=== PATIENT | male | born 1960 | race African-American/Black ===

== ENCOUNTER 2017-08-05 09:55 | Inpatient (IN) | payer MEDICAID ==
[~2017-08-05] VITALS: Ht 175.3 cm; Wt 93.2 kg
[2017-08-05] MEDS ORDERED: ASPIRIN 81MG TABLET PO STA (10:29)
[2017-08-05] MEDS ORDERED: CLONIDINE 0.2MG TABLET PO ONE (10:30)
[2017-08-05 10:59] LABS: HEMATOCRIT. 28.2 % (42.0-52.0); HEMOGLOBIN. 9.3 g/dL (14.0-18.0); MEAN CORPUSCULAR HEMOGLOBIN 28.6 pg (28.0-32.0); MEAN CORPUSCULAR VOLUME 86.2 fL (80.0-94.0); MEAN PLATELET VOLUME 8.5 fl (7.4-10.4); PLATELET 197 x1000/uL (130-400); RED BLOOD CELL COUNT 3.27 mill/uL (4.7-6.1); RED CELL DISTRIBUTION WIDTH 20.9 % (11.6-14.6)
[2017-08-05 11:06] LABS: CHLORIDE 102 mEq/L (98-107)
[2017-08-05 11:09] LABS: INR 1.1; PARTIAL THROMBOPLASTIN TIME 28.2 sec (23.4-31.0); PROTHROMBIN TIME 11.9 sec (9.4-11.6)
[2017-08-05] MEDS ORDERED: SODIUM BICARBONATE 8.4% 1 MEQ/ML 50ML SYR IV ONE (11:45)
[2017-08-05] MEDS ORDERED: DEXTROSE 50% WATER 50ML SYRINGE IV ONE (11:45)
[2017-08-05] MEDS ORDERED: INSULIN REGULAR (HUMULIN R) 300UNITS/3ML IV ONE (11:45)
[2017-08-05] MEDS ORDERED: ALBUTEROL (0.083%) 2.5MG/3ML NEB HHN ONE (11:45)
[2017-08-05] MEDS ORDERED: SODIUM POLYSTYRENE SULFONATE 15 G/60 ML BOT PO ONE (11:45)
[2017-08-05] MEDS ORDERED: DEXTROSE 50% WATER 50ML SYRINGE IV PRN (12:15)
[2017-08-05] MEDS ORDERED: IPRATROPIUM/ALBUTEROL 0.5-3(2.5)MG/3ML NEB HHN PRN (12:15)
[2017-08-05] MEDS ORDERED: HYDRALAZINE 20MG/ML VIAL IV ONE (12:15)
[2017-08-05 12:18] LABS: PLATELET ESTIMATE NORMAL
[2017-08-05] MEDS ORDERED: LABETALOL 5MG/ML SYR 20 MG/4 ML SYRINGE IV ONE (12:45)
[2017-08-05] MEDS: BLOOD SUGAR DIAGNOSTIC STRIP TEST SCH ×2 (13:00→21:00)
[2017-08-05] MEDS: INSULIN LISPRO 100 UNITS/ML SUBCUT SCH ×3 (13:20→21:00)
[2017-08-05] MEDS ORDERED: SODIUM BICARBONATE 8.4% 1 MEQ/ML 50ML SYR IV SCH (16:15)
[2017-08-05] MEDS ORDERED: INSULIN REGULAR (HUMULIN R) 300UNITS/3ML IV SCH (16:15)
[2017-08-05] MEDS ORDERED: DEXTROSE 50% WATER 50ML SYRINGE IV SCH (16:15)
[2017-08-05] MEDS ORDERED: LABETALOL 5MG/ML SYR 20 MG/4 ML SYRINGE IV SCH (16:15)
[2017-08-05] MEDS ORDERED: HYDRALAZINE 20MG/ML VIAL IV SCH (16:15)
[2017-08-05] MEDS ORDERED: CLONIDINE 0.1MG TABLET PO PRN (17:30)
[2017-08-05] MEDS ORDERED: SODIUM POLYSTYRENE SULFONATE 15 G/60 ML BOT ONE (18:22)
[2017-08-05 19:04] LABS: HEPATITIS B SURFACE ANTIGEN NEGATIVE
[2017-08-05] MEDS ORDERED: ATORVASTATIN CALCIUM 40MG TABLET PO SCH (21:00)
[2017-08-05 21:30] VITALS: BP 190/97
[2017-08-05] MEDS: NIFEDIPINE XL 60MG TAB PO SCH (22:14)
[2017-08-06] VITALS: BP 196/85
[2017-08-06] MEDS: BLOOD SUGAR DIAGNOSTIC STRIP TEST SCH ×3 (06:00→11:15)
[2017-08-06] MEDS ORDERED: EPOETIN ALFA 4000UNITS/ML VIAL SUBCUT SCH (06:00)
[2017-08-06] MEDS: INSULIN LISPRO 100 UNITS/ML SUBCUT SCH ×2 (06:52→11:16)
[2017-08-06 08:00] VITALS: BP 131/73
[2017-08-06] MEDS: NIFEDIPINE XL 60MG TAB PO SCH (08:13)
[2017-08-06] MEDS ORDERED: CLOPIDOGREL 75MG TABLET PO SCH (09:00)
[2017-08-06 09:31] LABS: HEMATOCRIT. 29.1 % (42.0-52.0); HEMOGLOBIN. 9.5 g/dL (14.0-18.0); MEAN CORPUSCULAR HEMOGLOBIN 28.1 pg (28.0-32.0); MEAN CORPUSCULAR VOLUME 86.1 fL (80.0-94.0); MEAN PLATELET VOLUME 8.8 fl (7.4-10.4); PLATELET 213 x1000/uL (130-400); RED BLOOD CELL COUNT 3.38 mill/uL (4.7-6.1)
[2017-08-06 09:38] LABS: PHOSPHORUS 4.3 mg/dL (2.5-4.9)
[2017-08-06 12:00] VITALS: BP 128/76
[2017-08-06 13:28] VITALS: BP 128/76
[2017-08-06] MEDS ORDERED: HYDRALAZINE HCL 100MG TABLET PO SCH (14:00)
[2017-08-06 19:13] LABS: PLATELET ESTIMATE NORMAL
== END 2017-08-06 16:15 | disposition home or self-care (01) | DRG 425 ==
LOC: ER 10:30 → 8WST 10:33 → EDBEDREQ 12:15 → ENRESERV 19:27
PROVIDERS: ADMIT Internal Medicine; ATTEND Internal Medicine
PROC: 5A1D70Z Performance of Urinary Filtration, Intermittent, Less than 6 Hours Per Day (ICD-10-PCS; principal; 2017-08-05)
DX: E87.5 Hyperkalemia (principal); I13.2 Hypertensive heart and chronic kidney disease with heart failure and with stage 5 chronic kidney disease, or end stage renal disease; E44.0 Moderate protein-calorie malnutrition; E11.22 Type 2 diabetes mellitus with diabetic chronic kidney disease; N18.6 End stage renal disease; E66.9 Obesity, unspecified; D63.8 Anemia in other chronic diseases classified elsewhere; E87.6 Hypokalemia; D64.9 Anemia, unspecified; E11.51 Type 2 diabetes mellitus with diabetic peripheral angiopathy without gangrene; E78.5 Hyperlipidemia, unspecified; I50.9 Heart failure, unspecified; Z86.73 Personal history of transient ischemic attack (TIA), and cerebral infarction without residual deficits; Z91.15 Patient's noncompliance with renal dialysis; Z88.0 Allergy status to penicillin; Z99.2 Dependence on renal dialysis; Z89.421 Acquired absence of other right toe(s); Z68.30 Body mass index [BMI] 30.0-30.9, adult; E87.70 Fluid overload, unspecified
CPT/HCPCS: 36415; 71045; 80048; 80053; 80061; 82962; 83036; 83735; 83880; 84100; 84484; 85025; 85610; 85730; 86803; 87340; 93005; 94644; J0360; J0885; J1815; J3490; J7030; J7611

== ENCOUNTER 2018-02-19 14:30 | Inpatient (IN) | payer MEDICAID ==
[~2018-02-19] VITALS: Ht 198.1 cm; Wt 79.8 kg
[2018-02-19] MEDS ORDERED: NITROGLYCERIN 0.4MG TABLET SL SL ONE (15:30)
[2018-02-19] MEDS ORDERED: NITROGLYCERIN 50MG PREMIX 250 ML IV ONE (15:30)
[2018-02-19 15:45] LABS: HEMATOCRIT. 26.8 % (42.0-52.0); MEAN CORPUSCULAR HEMOGLOBIN 28.3 pg (28.0-32.0); MEAN CORPUSCULAR VOLUME 84.3 fL (80.0-94.0); MEAN PLATELET VOLUME 8.8 fl (7.4-10.4); PLATELET 239 x1000/uL (130-400); RED BLOOD CELL COUNT 3.17 mill/uL (4.7-6.1)
[2018-02-19 15:51] LABS: INR 1.2; PROTHROMBIN TIME 11.8 sec (9.1-11.1)
[2018-02-19 15:53] LABS: CHLORIDE 98 mEq/L (98-107)
[2018-02-19 16:18] LABS: PLATELET ESTIMATE NORMAL
[2018-02-19] MEDS ORDERED: ASPIRIN 81MG TABLET PO ONE (16:30)
[2018-02-19] MEDS ORDERED: DEXTROSE 50% WATER 50ML SYRINGE IV PRN (16:45)
[2018-02-19] MEDS: MORPHINE SULFATE 4 MG/ML CPJ (NOT FOR IM USE) IV PRN (18:36)
[2018-02-19] MEDS: ONDANSETRON HCL 4MG/2ML INJ IV PRN (18:37)
[2018-02-19] MEDS ORDERED: LABETALOL 5MG/ML SYR 20 MG/4 ML SYRINGE IV ONE (20:00)
[2018-02-20] VITALS (38 sets, daily range): BP systolic 131–195; BP diastolic 42–109
[2018-02-20] MEDS ORDERED: HYDRALAZINE HCL 100MG TABLET PO NR (01:15)
[2018-02-20] MEDS ORDERED: NITROGLYCERIN 50MG PREMIX 250 ML IV ONE ×2 (03:41→09:05)
[2018-02-20] MEDS: MORPHINE SULFATE 4 MG/ML CPJ (NOT FOR IM USE) IV PRN ×2 (04:05→21:44)
[2018-02-20 05:55] LABS: BASOPHILS % 0.6 % (0.0-2.0); EOSINOPHILS % 9.1 % (0.0-5.0); HEMATOCRIT. 28.1 % (42.0-52.0); HEMOGLOBIN. 9.4 g/dL (14.0-18.0); LYMPHOCYTES % 7.8 % (20.0-50.0); MEAN CORPUSCULAR HEMOGLOBIN 28.1 pg (28.0-32.0); MEAN CORPUSCULAR VOLUME 84.2 fL (80.0-94.0); MONOCYTES % 6.9 % (2.0-8.0); NEUTROPHILS % 75.6 % (40.0-76.0); PLATELET 197 x1000/uL (130-400); RED BLOOD CELL COUNT 3.34 mill/uL (4.7-6.1); RED CELL DISTRIBUTION WIDTH 18.8 % (11.6-14.6)
[2018-02-20 06:04] LABS: PHOSPHORUS 5.3 mg/dL (2.5-4.9)
[2018-02-20] MEDS: CLONIDINE 0.2MG TABLET PO PRN (06:15)
[2018-02-20] MEDS: NIFEDIPINE XL 60MG TAB PO SCH ×2 (09:00→17:17)
[2018-02-20] MEDS: BLOOD SUGAR DIAGNOSTIC STRIP TEST SCH ×4 (09:52→21:52)
[2018-02-20] MEDS: INSULIN LISPRO 100 UNITS/ML SUBCUT SCH ×3 (12:00→21:52)
[2018-02-20] MEDS: LOSARTAN POTASSIUM 100 MG TABLET PO SCH (13:57)
[2018-02-20] MEDS: HYDRALAZINE HCL 100MG TABLET PO SCH ×2 (13:58→21:45)
[2018-02-20] MEDS: ONDANSETRON HCL 4MG/2ML INJ IV PRN (21:43)
[2018-02-20] MEDS: CLONIDINE 0.2MG TABLET PO SCH (21:45)
[2018-02-20] MEDS: METOPROLOL TARTRATE 50MG TABLET PO SCH (21:49)
[2018-02-21] VITALS (23 sets, daily range): BP systolic 108–174; BP diastolic 62–100
[2018-02-21] MEDS: CLONIDINE 0.2MG TABLET PO PRN (02:08)
[2018-02-21 06:00] LABS: BASOPHILS % 1.9 % (0.0-2.0); EOSINOPHILS % 13.4 % (0.0-5.0); HEMOGLOBIN. 10.5 g/dL (14.0-18.0); LYMPHOCYTES % 10.4 % (20.0-50.0); MEAN CORPUSCULAR HEMOGLOBIN 27.9 pg (28.0-32.0); MEAN CORPUSCULAR VOLUME 84.9 fL (80.0-94.0); MEAN PLATELET VOLUME 8.6 fl (7.4-10.4); MONOCYTES % 8.5 % (2.0-8.0); NEUTROPHILS % 65.8 % (40.0-76.0); PLATELET 206 x1000/uL (130-400); RED BLOOD CELL COUNT 3.77 mill/uL (4.7-6.1); RED CELL DISTRIBUTION WIDTH 19.1 % (11.6-14.6)
[2018-02-21] MEDS: HYDRALAZINE HCL 100MG TABLET PO SCH ×3 (06:00→21:49)
[2018-02-21] MEDS: CLONIDINE 0.2MG TABLET PO SCH ×3 (06:00→21:49)
[2018-02-21] MEDS: BLOOD SUGAR DIAGNOSTIC STRIP TEST SCH ×4 (06:48→20:36)
[2018-02-21] MEDS: INSULIN LISPRO 100 UNITS/ML SUBCUT SCH ×4 (06:48→20:42)
[2018-02-21] MEDS: NIFEDIPINE XL 60MG TAB PO SCH ×2 (08:19→17:52)
[2018-02-21] MEDS: METOPROLOL TARTRATE 50MG TABLET PO SCH ×2 (08:19→20:26)
[2018-02-21] MEDS: LOSARTAN POTASSIUM 100 MG TABLET PO SCH (08:19)
[2018-02-21] MEDS: CALCIUM ACETATE 667MG CAPSULE PO SCH ×2 (12:43→17:57)
[2018-02-21] MEDS: DIPHENHYDRAMINE 25MG CAPSULE PO PRN (13:29)
[2018-02-21] MEDS ORDERED: DIPHENHYDRAMINE 25MG CAPSULE PO PRN (13:30)
[2018-02-21] MEDS ORDERED: ACETAMINOPHEN 650MG/20.3ML UDC PO PRN (21:30)
[2018-02-21] MEDS: ACETAMINOPHEN 325MG TABLET PO PRN (21:50)
[2018-02-21] MEDS ORDERED: DIPHENHYDRAMINE 25MG CAPSULE PO NR (23:15)
[2018-02-22] VITALS: BP 139/72
[2018-02-22 04:00] VITALS: BP 137/76
[2018-02-22] MEDS: HYDRALAZINE HCL 100MG TABLET PO SCH ×3 (06:04→21:17)
[2018-02-22] MEDS: CLONIDINE 0.2MG TABLET PO SCH ×3 (06:05→21:18)
[2018-02-22] MEDS: BLOOD SUGAR DIAGNOSTIC STRIP TEST SCH ×4 (06:29→20:17)
[2018-02-22] MEDS: INSULIN LISPRO 100 UNITS/ML SUBCUT SCH ×4 (07:50→20:53)
[2018-02-22 09:00] VITALS: BP 125/76
[2018-02-22] MEDS: METOPROLOL TARTRATE 50MG TABLET PO SCH ×2 (09:00→20:09)
[2018-02-22] MEDS: NIFEDIPINE XL 60MG TAB PO SCH ×2 (09:00→18:58)
[2018-02-22] MEDS: LOSARTAN POTASSIUM 100 MG TABLET PO SCH (09:00)
[2018-02-22 10:29] LABS: BASOPHILS % 0.8 % (0.0-2.0); EOSINOPHILS % 14.2 % (0.0-5.0); HEMATOCRIT. 30.1 % (42.0-52.0); HEMOGLOBIN. 10.1 g/dL (14.0-18.0); LYMPHOCYTES % 7.8 % (20.0-50.0); MEAN CORPUSCULAR VOLUME 83.4 fL (80.0-94.0); MEAN PLATELET VOLUME 8.1 fl (7.4-10.4); MONOCYTES % 8.5 % (2.0-8.0); NEUTROPHILS % 68.7 % (40.0-76.0); PLATELET 202 x1000/uL (130-400); RED BLOOD CELL COUNT 3.61 mill/uL (4.7-6.1); RED CELL DISTRIBUTION WIDTH 18.9 % (11.6-14.6)
[2018-02-22 11:57] VITALS: BP 132/70
[2018-02-22 12:11] LABS: PHOSPHORUS 8.2 mg/dL (2.5-4.9)
[2018-02-22] MEDS: CALCIUM ACETATE 667MG CAPSULE PO SCH ×2 (15:04→18:58)
[2018-02-22 20:00] VITALS: BP 136/73
[2018-02-22] MEDS: MORPHINE SULFATE 4 MG/ML CPJ (NOT FOR IM USE) IV PRN (20:10)
[2018-02-23] MEDS: CLONIDINE 0.2MG TABLET PO SCH ×3 (06:14→22:17)
[2018-02-23] MEDS: HYDRALAZINE HCL 100MG TABLET PO SCH ×3 (06:15→22:17)
[2018-02-23] MEDS: BLOOD SUGAR DIAGNOSTIC STRIP TEST SCH ×4 (06:20→21:01)
[2018-02-23] MEDS: CALCIUM ACETATE 667MG CAPSULE PO SCH ×4 (07:50→17:50)
[2018-02-23] MEDS: INSULIN LISPRO 100 UNITS/ML SUBCUT SCH ×4 (07:50→21:01)
[2018-02-23 08:53] VITALS: BP 130/60
[2018-02-23] MEDS: NIFEDIPINE XL 60MG TAB PO SCH ×2 (10:46→17:00)
[2018-02-23] MEDS: METOPROLOL TARTRATE 50MG TABLET PO SCH ×2 (10:47→21:01)
[2018-02-23] MEDS: LOSARTAN POTASSIUM 100 MG TABLET PO SCH (10:47)
[2018-02-23 12:29] VITALS: BP 120/69
[2018-02-23 13:27] LABS: HEMATOCRIT. 32.3 % (42.0-52.0); HEMOGLOBIN. 10.5 g/dL (14.0-18.0); MEAN CORPUSCULAR HEMOGLOBIN 27.3 pg (28.0-32.0); MEAN PLATELET VOLUME 8.1 fl (7.4-10.4); PLATELET 189 x1000/uL (130-400); RED BLOOD CELL COUNT 3.85 mill/uL (4.7-6.1); RED CELL DISTRIBUTION WIDTH 18.7 % (11.6-14.6)
[2018-02-23 13:48] LABS: PLATELET ESTIMATE NORMAL
[2018-02-23 16:20] VITALS: BP 126/69
[2018-02-23] MEDS: ONDANSETRON HCL 4MG/2ML INJ IV PRN (19:40)
[2018-02-23 20:00] VITALS: BP_SYST 129; BP_SYST 136; BP_DIAS 40; BP_DIAS 41
[2018-02-23] MEDS: MORPHINE SULFATE 4 MG/ML CPJ (NOT FOR IM USE) IV PRN (20:03)
[2018-02-24] VITALS: BP 127/62
[2018-02-24] MEDS: DIPHENHYDRAMINE 25MG CAPSULE PO PRN (02:26)
[2018-02-24 04:00] VITALS: BP 128/72
[2018-02-24] MEDS: CLONIDINE 0.2MG TABLET PO SCH ×3 (06:00→22:00)
[2018-02-24] MEDS: HYDRALAZINE HCL 100MG TABLET PO SCH ×3 (06:00→22:00)
[2018-02-24] MEDS: BLOOD SUGAR DIAGNOSTIC STRIP TEST SCH ×4 (06:43→21:00)
[2018-02-24 06:57] LABS: BASOPHILS % 0.9 % (0.0-2.0); EOSINOPHILS % 11.5 % (0.0-5.0); HEMATOCRIT. 33.1 % (42.0-52.0); HEMOGLOBIN. 10.8 g/dL (14.0-18.0); LYMPHOCYTES % 12.6 % (20.0-50.0); MEAN CORPUSCULAR HEMOGLOBIN 27.5 pg (28.0-32.0); MEAN CORPUSCULAR VOLUME 84.3 fL (80.0-94.0); MONOCYTES % 8.5 % (2.0-8.0); NEUTROPHILS % 66.5 % (40.0-76.0); RED BLOOD CELL COUNT 3.93 mill/uL (4.7-6.1); RED CELL DISTRIBUTION WIDTH 18.4 % (11.6-14.6)
[2018-02-24] MEDS: INSULIN LISPRO 100 UNITS/ML SUBCUT SCH ×4 (07:35→21:18)
[2018-02-24 08:00] VITALS: BP 136/68
[2018-02-24] MEDS: CALCIUM ACETATE 667MG CAPSULE PO SCH ×3 (08:28→18:07)
[2018-02-24] MEDS: METOPROLOL TARTRATE 50MG TABLET PO SCH ×2 (09:00→21:06)
[2018-02-24] MEDS: NIFEDIPINE XL 60MG TAB PO SCH ×2 (09:00→17:00)
[2018-02-24] MEDS: LOSARTAN POTASSIUM 100 MG TABLET PO SCH (09:00)
[2018-02-24 10:05] LABS: PLATELET 140 x1000/uL (130-400)
[2018-02-24 10:35] LABS: PHOSPHORUS 9.5 mg/dL (2.5-4.9)
[2018-02-24 12:00] VITALS: BP 138/70
[2018-02-24] MEDS: SEVELAMER CARBONATE 800 MG TABLET PO SCH ×2 (14:09→18:07)
[2018-02-24 16:00] VITALS: BP 128/76
[2018-02-24 21:00] VITALS: BP 129/71
[2018-02-24] MEDS: ONDANSETRON HCL 4MG/2ML INJ IV PRN (21:06)
[2018-02-25] MEDS: DIPHENHYDRAMINE 25MG CAPSULE PO PRN (02:09)
[2018-02-25 05:20] VITALS: BP 154/76
[2018-02-25] MEDS: HYDRALAZINE HCL 100MG TABLET PO SCH ×3 (05:32→21:55)
[2018-02-25] MEDS: CLONIDINE 0.2MG TABLET PO SCH ×3 (05:32→21:55)
[2018-02-25] MEDS: BLOOD SUGAR DIAGNOSTIC STRIP TEST SCH ×4 (06:51→20:15)
[2018-02-25] MEDS: INSULIN LISPRO 100 UNITS/ML SUBCUT SCH ×4 (07:50→21:00)
[2018-02-25 09:00] VITALS: BP 148/69
[2018-02-25] MEDS: CALCIUM ACETATE 667MG CAPSULE PO SCH ×3 (09:40→17:29)
[2018-02-25] MEDS: SEVELAMER CARBONATE 800 MG TABLET PO SCH ×3 (09:40→17:29)
[2018-02-25] MEDS: METOPROLOL TARTRATE 50MG TABLET PO SCH ×2 (09:41→21:11)
[2018-02-25] MEDS: LOSARTAN POTASSIUM 100 MG TABLET PO SCH (09:41)
[2018-02-25] MEDS: NIFEDIPINE XL 60MG TAB PO SCH ×2 (09:43→17:00)
[2018-02-25 12:00] VITALS: BP 138/75
[2018-02-25 15:34] LABS: HEMATOCRIT. 31.4 % (42.0-52.0); HEMOGLOBIN. 10.3 g/dL (14.0-18.0); MEAN CORPUSCULAR HEMOGLOBIN 27.3 pg (28.0-32.0); MEAN CORPUSCULAR VOLUME 83.6 fL (80.0-94.0); MEAN PLATELET VOLUME 8.6 fl (7.4-10.4); PLATELET 157 x1000/uL (130-400); RED BLOOD CELL COUNT 3.75 mill/uL (4.7-6.1); RED CELL DISTRIBUTION WIDTH 18.6 % (11.6-14.6)
[2018-02-25 15:49] LABS: PHOSPHORUS 6.5 mg/dL (2.5-4.9)
[2018-02-25 18:30] LABS: PLATELET ESTIMATE NORMAL
[2018-02-25 20:30] VITALS: BP 141/74
[2018-02-25] MEDS: ONDANSETRON HCL 4MG/2ML INJ IV PRN (21:55)
[2018-02-26] VITALS (15 sets, daily range): BP systolic 145–190; BP diastolic 67–97
[2018-02-26] MEDS: CLONIDINE 0.2MG TABLET PO PRN (00:48)
[2018-02-26] MEDS: ACETAMINOPHEN 325MG TABLET PO PRN ×2 (00:52→21:23)
[2018-02-26] MEDS: HYDRALAZINE HCL 100MG TABLET PO SCH ×3 (05:11→21:18)
[2018-02-26] MEDS: CLONIDINE 0.2MG TABLET PO SCH ×3 (05:11→21:18)
[2018-02-26] MEDS: BLOOD SUGAR DIAGNOSTIC STRIP TEST SCH ×4 (06:20→21:48)
[2018-02-26] MEDS: INSULIN LISPRO 100 UNITS/ML SUBCUT SCH ×4 (06:23→21:48)
[2018-02-26] MEDS: SEVELAMER CARBONATE 800 MG TABLET PO SCH ×3 (08:51→17:42)
[2018-02-26] MEDS: LOSARTAN POTASSIUM 100 MG TABLET PO SCH (08:51)
[2018-02-26] MEDS: NIFEDIPINE XL 60MG TAB PO SCH ×2 (08:51→16:35)
[2018-02-26] MEDS: METOPROLOL TARTRATE 50MG TABLET PO SCH ×2 (08:51→21:17)
[2018-02-26] MEDS: CALCIUM ACETATE 667MG CAPSULE PO SCH ×3 (08:51→17:42)
[2018-02-26 09:21] LABS: HEMATOCRIT. 30.8 % (42.0-52.0); MEAN CORPUSCULAR HEMOGLOBIN 27.1 pg (28.0-32.0); MEAN CORPUSCULAR VOLUME 83.3 fL (80.0-94.0); MEAN PLATELET VOLUME 8.5 fl (7.4-10.4); PLATELET 153 x1000/uL (130-400); RED CELL DISTRIBUTION WIDTH 18.3 % (11.6-14.6)
[2018-02-26 11:01] LABS: PHOSPHORUS 5.3 mg/dL (2.5-4.9)
[2018-02-26] MEDS ORDERED: SODIUM POLYSTYRENE SULFONATE 15 G/60 ML BOT PO NR (12:00)
[2018-02-26] MEDS ORDERED: FENTANYL CITRATE/PF 50MCG/ML 2ML VIAL ONE (13:22)
[2018-02-26] MEDS ORDERED: HEPARIN 1000 UNITS/ML 10ML ONE (13:22)
[2018-02-26] MEDS ORDERED: SODIUM BICARBONATE 4% (2.4MEQ) 5ML VIAL IV ONE (13:22)
[2018-02-26] MEDS ORDERED: LIDOCAINE HCL 1% 20ML VIAL (Pyxis) INJ ONE (13:22)
[2018-02-26 13:40] LABS: PLATELET ESTIMATE NORMAL
[2018-02-26] MEDS ORDERED: FENTANYL CITRATE/PF 50MCG/ML 2ML VIAL IV ONE (14:15)
[2018-02-26] MEDS: ONDANSETRON HCL 4MG/2ML INJ IV PRN (17:02)
[2018-02-27] VITALS: BP 130/59
[2018-02-27] MEDS: ONDANSETRON HCL 4MG/2ML INJ IV PRN (01:37)
[2018-02-27 04:00] VITALS: BP 144/70
[2018-02-27] MEDS: HYDRALAZINE HCL 100MG TABLET PO SCH ×3 (06:00→22:01)
[2018-02-27] MEDS: CLONIDINE 0.2MG TABLET PO SCH ×3 (06:00→22:01)
[2018-02-27 07:49] LABS: HEMATOCRIT. 31.4 % (42.0-52.0); HEMOGLOBIN. 10.2 g/dL (14.0-18.0); MEAN CORPUSCULAR HEMOGLOBIN 27.3 pg (28.0-32.0); MEAN CORPUSCULAR VOLUME 83.9 fL (80.0-94.0); PLATELET 152 x1000/uL (130-400); RED BLOOD CELL COUNT 3.74 mill/uL (4.7-6.1); RED CELL DISTRIBUTION WIDTH 18.2 % (11.6-14.6)
[2018-02-27] MEDS: INSULIN LISPRO 100 UNITS/ML SUBCUT SCH ×4 (07:50→22:02)
[2018-02-27] MEDS: BLOOD SUGAR DIAGNOSTIC STRIP TEST SCH ×4 (07:50→21:00)
[2018-02-27 08:00] VITALS: BP 130/82
[2018-02-27 08:03] LABS: PHOSPHORUS 5.5 mg/dL (2.5-4.9)
[2018-02-27] MEDS: CALCIUM ACETATE 667MG CAPSULE PO SCH ×3 (08:30→17:46)
[2018-02-27] MEDS: ACETAMINOPHEN 325MG TABLET PO PRN ×2 (08:30→17:46)
[2018-02-27] MEDS: SEVELAMER CARBONATE 800 MG TABLET PO SCH ×3 (08:30→17:46)
[2018-02-27] MEDS: NIFEDIPINE XL 60MG TAB PO SCH ×2 (08:33→17:47)
[2018-02-27] MEDS: METOPROLOL TARTRATE 50MG TABLET PO SCH ×2 (08:33→22:00)
[2018-02-27 11:52] LABS: PLATELET ESTIMATE NORMAL
[2018-02-27 12:00] VITALS: BP 131/73
[2018-02-27 16:00] VITALS: BP 128/67
[2018-02-27 20:00] VITALS: BP 121/67
[2018-02-28] VITALS (8 sets, daily range): BP systolic 95–141; BP diastolic 40–71
[2018-02-28] MEDS: HYDRALAZINE HCL 100MG TABLET PO SCH ×3 (06:35→23:13)
[2018-02-28] MEDS: CLONIDINE 0.2MG TABLET PO SCH ×3 (06:35→23:13)
[2018-02-28] MEDS: BLOOD SUGAR DIAGNOSTIC STRIP TEST SCH ×4 (06:36→20:57)
[2018-02-28] MEDS: NIFEDIPINE XL 60MG TAB PO SCH ×2 (09:00→19:15)
[2018-02-28] MEDS: METOPROLOL TARTRATE 50MG TABLET PO SCH ×2 (09:00→21:00)
[2018-02-28] MEDS: CALCIUM ACETATE 667MG CAPSULE PO SCH ×3 (09:29→19:16)
[2018-02-28] MEDS: SEVELAMER CARBONATE 800 MG TABLET PO SCH ×3 (09:29→19:16)
[2018-02-28] MEDS: INSULIN LISPRO 100 UNITS/ML SUBCUT SCH ×4 (09:33→21:01)
[2018-02-28 10:44] LABS: HEMATOCRIT. 30.5 % (42.0-52.0); HEMOGLOBIN. 9.9 g/dL (14.0-18.0); MEAN CORPUSCULAR HEMOGLOBIN 27.2 pg (28.0-32.0); MEAN CORPUSCULAR VOLUME 83.6 fL (80.0-94.0); MEAN PLATELET VOLUME 9.4 fl (7.4-10.4); PLATELET 161 x1000/uL (130-400); RED BLOOD CELL COUNT 3.65 mill/uL (4.7-6.1); RED CELL DISTRIBUTION WIDTH 17.6 % (11.6-14.6)
[2018-02-28 11:45] LABS: PHOSPHORUS 3.9 mg/dL (2.5-4.9)
[2018-02-28 13:28] LABS: PLATELET ESTIMATE NORMAL
[2018-02-28] MEDS ORDERED: VANCOMYCIN 1,500 MG in DEXT 5% WATER 250 ML IV SCH (16:00)
[2018-02-28] MEDS: ACETAMINOPHEN 325MG TABLET PO PRN ×2 (16:38→23:17)
[2018-02-28] MEDS: MORPHINE SULFATE 4 MG/ML CPJ (NOT FOR IM USE) IV PRN (21:00)
[2018-03-01] MEDS: CLONIDINE 0.2MG TABLET PO SCH ×3 (06:00→21:49)
[2018-03-01] MEDS: HYDRALAZINE HCL 100MG TABLET PO SCH ×3 (06:00→21:49)
[2018-03-01] MEDS: BLOOD SUGAR DIAGNOSTIC STRIP TEST SCH ×4 (06:22→20:32)
[2018-03-01] MEDS: METOPROLOL TARTRATE 50MG TABLET PO SCH ×2 (07:25→20:32)
[2018-03-01] MEDS: NIFEDIPINE XL 60MG TAB PO SCH ×2 (07:25→16:55)
[2018-03-01 08:00] VITALS: BP 146/72
[2018-03-01] MEDS: ONDANSETRON HCL 4MG/2ML INJ IV PRN ×2 (08:15→20:01)
[2018-03-01] MEDS: CALCIUM ACETATE 667MG CAPSULE PO SCH ×3 (08:15→17:47)
[2018-03-01] MEDS: SEVELAMER CARBONATE 800 MG TABLET PO SCH ×3 (08:15→17:48)
[2018-03-01] MEDS: INSULIN LISPRO 100 UNITS/ML SUBCUT SCH ×4 (08:16→20:33)
[2018-03-01] MEDS: MORPHINE SULFATE 4 MG/ML CPJ (NOT FOR IM USE) IV PRN ×2 (08:32→13:20)
[2018-03-01 12:00] VITALS: BP 135/70
[2018-03-01 16:00] VITALS: BP 129/64
[2018-03-01 18:13] LABS: HEMATOCRIT. 29.8 % (42.0-52.0); HEMOGLOBIN. 9.9 g/dL (14.0-18.0); MEAN CORPUSCULAR HEMOGLOBIN 27.3 pg (28.0-32.0); MEAN CORPUSCULAR VOLUME 82.5 fL (80.0-94.0); MEAN PLATELET VOLUME 8.3 fl (7.4-10.4); PLATELET 194 x1000/uL (130-400); RED BLOOD CELL COUNT 3.62 mill/uL (4.7-6.1); RED CELL DISTRIBUTION WIDTH 17.4 % (11.6-14.6)
[2018-03-01 18:28] LABS: PHOSPHORUS 3.4 mg/dL (2.5-4.9)
[2018-03-01 19:35] VITALS: BP 120/54
[2018-03-01 19:55] LABS: PLATELET ESTIMATE NORMAL
[2018-03-01 21:15] VITALS: BP 149/62
[2018-03-01] MEDS ORDERED: VANCOMYCIN 1 G PREMIX 200 ML IV NR (21:30)
[2018-03-01] MEDS: ACETAMINOPHEN 325MG TABLET PO PRN (21:49)
[2018-03-02 04:00] VITALS: BP 135/61
[2018-03-02] MEDS: ACETAMINOPHEN 325MG TABLET PO PRN ×2 (05:58→12:09)
[2018-03-02] MEDS: CLONIDINE 0.2MG TABLET PO SCH ×3 (05:59→22:00)
[2018-03-02] MEDS: HYDRALAZINE HCL 100MG TABLET PO SCH ×3 (05:59→22:00)
[2018-03-02] MEDS: BLOOD SUGAR DIAGNOSTIC STRIP TEST SCH ×4 (07:20→20:57)
[2018-03-02] MEDS: INSULIN LISPRO 100 UNITS/ML SUBCUT SCH ×4 (07:50→20:49)
[2018-03-02 08:00] VITALS: BP 123/66
[2018-03-02] MEDS: CALCIUM ACETATE 667MG CAPSULE PO SCH ×3 (08:21→17:18)
[2018-03-02] MEDS: SEVELAMER CARBONATE 800 MG TABLET PO SCH ×3 (08:21→17:19)
[2018-03-02] MEDS: METOPROLOL TARTRATE 50MG TABLET PO SCH ×2 (08:21→20:22)
[2018-03-02] MEDS: NIFEDIPINE XL 60MG TAB PO SCH ×2 (08:21→17:19)
[2018-03-02] MEDS: MORPHINE SULFATE 4 MG/ML CPJ (NOT FOR IM USE) IV PRN ×3 (08:56→20:22)
[2018-03-02 12:00] VITALS: BP 119/77
[2018-03-02] MEDS ORDERED: LIDOCAINE HCL 1% 20ML VIAL (Pyxis) INJ ONE (15:00)
[2018-03-02] MEDS ORDERED: GELATIN SPONGE,ABSORBABLE 12-7MM SPONGE ONE (15:01)
[2018-03-02 16:00] VITALS: BP 119/62
[2018-03-02 20:00] VITALS: BP 119/65
[2018-03-02] MEDS: DIPHENHYDRAMINE 25MG CAPSULE PO PRN (20:31)
[2018-03-03] MEDS: CLONIDINE 0.2MG TABLET PO SCH ×3 (06:15→23:01)
[2018-03-03] MEDS: HYDRALAZINE HCL 100MG TABLET PO SCH ×3 (06:16→23:00)
[2018-03-03] MEDS: BLOOD SUGAR DIAGNOSTIC STRIP TEST SCH ×4 (07:20→21:48)
[2018-03-03] MEDS: INSULIN LISPRO 100 UNITS/ML SUBCUT SCH ×4 (07:50→21:00)
[2018-03-03] MEDS: CALCIUM ACETATE 667MG CAPSULE PO SCH ×3 (07:50→17:50)
[2018-03-03] MEDS: SEVELAMER CARBONATE 800 MG TABLET PO SCH ×3 (07:50→17:50)
[2018-03-03] MEDS: NIFEDIPINE XL 60MG TAB PO SCH ×2 (09:00→17:00)
[2018-03-03] MEDS: METOPROLOL TARTRATE 50MG TABLET PO SCH ×2 (09:00→20:52)
[2018-03-03 10:36] LABS: HEMATOCRIT. 27.9 % (42.0-52.0); HEMOGLOBIN. 9.1 g/dL (14.0-18.0); MEAN CORPUSCULAR HEMOGLOBIN 26.8 pg (28.0-32.0); MEAN CORPUSCULAR VOLUME 82.6 fL (80.0-94.0); MEAN PLATELET VOLUME 8.5 fl (7.4-10.4); PLATELET 230 x1000/uL (130-400); RED BLOOD CELL COUNT 3.38 mill/uL (4.7-6.1); RED CELL DISTRIBUTION WIDTH 17.6 % (11.6-14.6)
[2018-03-03 11:59] LABS: PLATELET ESTIMATE NORMAL
[2018-03-03] MEDS ORDERED: HYDROCODONE/ACETAMINOPHEN 5/325MG TABLET PO PRN (13:00)
[2018-03-03] MEDS ORDERED: VANCOMYCIN 1 G PREMIX 200 ML IV SCH (19:00)
[2018-03-03 20:00] VITALS: BP 129/67
[2018-03-03] MEDS: QUETIAPINE FUMARATE 25MG TABLET PO SCH (23:00)
[2018-03-03] MEDS: HYDROMORPHONE HCL/PF 2MG/ML CPJ IM PRN (23:02)
[2018-03-04 04:00] VITALS: BP 122/69
[2018-03-04] MEDS: HYDRALAZINE HCL 100MG TABLET PO SCH ×3 (06:00→22:04)
[2018-03-04] MEDS: CLONIDINE 0.2MG TABLET PO SCH ×3 (06:00→22:04)
[2018-03-04 06:20] LABS: HEMATOCRIT. 28.3 % (42.0-52.0); HEMOGLOBIN. 9.4 g/dL (14.0-18.0); MEAN CORPUSCULAR HEMOGLOBIN 27.2 pg (28.0-32.0); MEAN CORPUSCULAR VOLUME 81.9 fL (80.0-94.0); MEAN PLATELET VOLUME 8.8 fl (7.4-10.4); PLATELET 231 x1000/uL (130-400); RED BLOOD CELL COUNT 3.45 mill/uL (4.7-6.1); RED CELL DISTRIBUTION WIDTH 17.6 % (11.6-14.6)
[2018-03-04] MEDS: HYDROMORPHONE HCL/PF 2MG/ML CPJ IM PRN (06:53)
[2018-03-04] MEDS: BLOOD SUGAR DIAGNOSTIC STRIP TEST SCH ×4 (07:40→21:00)
[2018-03-04] MEDS: INSULIN LISPRO 100 UNITS/ML SUBCUT SCH ×4 (07:50→21:00)
[2018-03-04 08:00] VITALS: BP 140/72
[2018-03-04] MEDS: NIFEDIPINE XL 60MG TAB PO SCH ×2 (09:00→17:00)
[2018-03-04] MEDS: METOPROLOL TARTRATE 50MG TABLET PO SCH ×2 (09:00→21:00)
[2018-03-04] MEDS: SEVELAMER CARBONATE 800 MG TABLET PO SCH ×3 (09:10→17:50)
[2018-03-04] MEDS: CALCIUM ACETATE 667MG CAPSULE PO SCH ×3 (09:15→17:50)
[2018-03-04 11:25] LABS: PLATELET ESTIMATE NORMAL
[2018-03-04] MEDS: LINEZOLID 600MG TABLET PO SCH ×2 (15:00→23:11)
[2018-03-04] MEDS ORDERED: LIDOCAINE HCL 1% 20ML VIAL (Pyxis) INJ ONE (15:15)
[2018-03-04] MEDS ORDERED: HEPARIN 1000 UNITS/ML 10ML ONE (15:15)
[2018-03-04] MEDS: MORPHINE SULFATE 4 MG/ML CPJ (NOT FOR IM USE) IV PRN (19:42)
[2018-03-04] MEDS: ONDANSETRON HCL 4MG/2ML INJ IV PRN (19:42)
[2018-03-04 20:00] VITALS: BP 173/89
[2018-03-04] MEDS: QUETIAPINE FUMARATE 25MG TABLET PO SCH ×2 (21:00→23:11)
[2018-03-05] MEDS: HYDRALAZINE HCL 100MG TABLET PO SCH ×3 (05:23→23:09)
[2018-03-05] MEDS: CLONIDINE 0.2MG TABLET PO SCH ×3 (05:24→23:09)
[2018-03-05] MEDS: BLOOD SUGAR DIAGNOSTIC STRIP TEST SCH ×4 (06:36→21:06)
[2018-03-05] MEDS: SEVELAMER CARBONATE 800 MG TABLET PO SCH ×3 (07:50→18:12)
[2018-03-05] MEDS: INSULIN LISPRO 100 UNITS/ML SUBCUT SCH ×4 (07:50→21:00)
[2018-03-05] MEDS: CALCIUM ACETATE 667MG CAPSULE PO SCH ×3 (07:50→18:13)
[2018-03-05 08:00] VITALS: BP 119/72
[2018-03-05] MEDS: NIFEDIPINE XL 60MG TAB PO SCH ×2 (08:24→17:47)
[2018-03-05] MEDS: METOPROLOL TARTRATE 50MG TABLET PO SCH ×2 (08:24→20:59)
[2018-03-05 12:00] VITALS: BP 137/73
[2018-03-05] MEDS ORDERED: VANCOMYCIN 1250MG in DEXTROSE 5% WATER 250ML IV NR (13:00)
[2018-03-05] MEDS: MORPHINE SULFATE 4 MG/ML CPJ (NOT FOR IM USE) IV PRN (15:48)
[2018-03-05] MEDS: DIPHENHYDRAMINE 25MG CAPSULE PO PRN (15:49)
[2018-03-05 16:00] VITALS: BP 119/58
[2018-03-05] MEDS: QUETIAPINE FUMARATE 25MG TABLET PO SCH (21:00)
[2018-03-06 04:00] VITALS: BP 128/69
[2018-03-06] MEDS: CLONIDINE 0.2MG TABLET PO SCH ×3 (06:00→22:12)
[2018-03-06] MEDS: HYDRALAZINE HCL 100MG TABLET PO SCH ×3 (06:00→22:11)
[2018-03-06] MEDS: BLOOD SUGAR DIAGNOSTIC STRIP TEST SCH ×4 (06:27→21:00)
[2018-03-06] MEDS: CALCIUM ACETATE 667MG CAPSULE PO SCH ×3 (07:50→19:20)
[2018-03-06] MEDS: INSULIN LISPRO 100 UNITS/ML SUBCUT SCH ×4 (07:50→21:00)
[2018-03-06] MEDS: SEVELAMER CARBONATE 800 MG TABLET PO SCH ×3 (07:50→19:19)
[2018-03-06 08:00] VITALS: BP 135/72
[2018-03-06] MEDS: NIFEDIPINE XL 60MG TAB PO SCH ×2 (09:00→17:00)
[2018-03-06] MEDS: METOPROLOL TARTRATE 50MG TABLET PO SCH ×2 (09:00→20:46)
[2018-03-06 12:09] LABS: HEMATOCRIT. 28.2 % (42.0-52.0); HEMOGLOBIN. 9.2 g/dL (14.0-18.0); MEAN CORPUSCULAR HEMOGLOBIN 27.2 pg (28.0-32.0); MEAN CORPUSCULAR VOLUME 82.8 fL (80.0-94.0); MEAN PLATELET VOLUME 7.9 fl (7.4-10.4); PLATELET 282 x1000/uL (130-400)
[2018-03-06 12:21] LABS: PHOSPHORUS 2.3 mg/dL (2.5-4.9)
[2018-03-06] MEDS: ACETAMINOPHEN 325MG TABLET PO PRN (14:19)
[2018-03-06 14:29] LABS: PLATELET ESTIMATE NORMAL
[2018-03-06 16:00] VITALS: BP 102/72
[2018-03-06] MEDS: DIPHENHYDRAMINE 25MG CAPSULE PO PRN (16:13)
[2018-03-06] MEDS: DOCUSATE SODIUM 250MG CAPSULE PO PRN (19:19)
[2018-03-06 20:00] VITALS: BP 165/88
[2018-03-06] MEDS: QUETIAPINE FUMARATE 25MG TABLET PO SCH (20:46)
[2018-03-07] VITALS: BP 138/74
[2018-03-07 04:00] VITALS: BP 141/68
[2018-03-07] MEDS: CLONIDINE 0.2MG TABLET PO SCH ×3 (06:00→22:00)
[2018-03-07] MEDS: BLOOD SUGAR DIAGNOSTIC STRIP TEST SCH ×4 (06:52→21:00)
[2018-03-07] MEDS: INSULIN LISPRO 100 UNITS/ML SUBCUT SCH ×4 (07:50→21:00)
[2018-03-07 08:00] VITALS: BP 157/76
[2018-03-07] MEDS: CALCIUM ACETATE 667MG CAPSULE PO SCH ×3 (10:39→17:48)
[2018-03-07] MEDS: NIFEDIPINE XL 60MG TAB PO SCH ×2 (10:40→17:48)
[2018-03-07] MEDS: SEVELAMER CARBONATE 800 MG TABLET PO SCH ×3 (10:40→17:48)
[2018-03-07] MEDS: METOPROLOL TARTRATE 50MG TABLET PO SCH ×2 (10:40→20:30)
[2018-03-07 12:00] VITALS: BP 136/81
[2018-03-07] MEDS: HYDRALAZINE HCL 100MG TABLET PO SCH ×2 (13:13→22:00)
[2018-03-07 16:00] VITALS: BP 131/71
[2018-03-07 16:07] LABS: HEMATOCRIT. 26.1 % (42.0-52.0); HEMOGLOBIN. 8.6 g/dL (14.0-18.0); MEAN CORPUSCULAR VOLUME 82.1 fL (80.0-94.0); MEAN PLATELET VOLUME 7.9 fl (7.4-10.4); PLATELET 268 x1000/uL (130-400); RED BLOOD CELL COUNT 3.18 mill/uL (4.7-6.1); RED CELL DISTRIBUTION WIDTH 17.7 % (11.6-14.6)
[2018-03-07 16:39] LABS: PHOSPHORUS 3.9 mg/dL (2.5-4.9)
[2018-03-07 16:41] LABS: PLATELET ESTIMATE NORMAL
[2018-03-07 20:00] VITALS: BP 132/67
[2018-03-07] MEDS: ACETAMINOPHEN 325MG TABLET PO PRN (20:24)
[2018-03-07] MEDS: QUETIAPINE FUMARATE 25MG TABLET PO SCH (20:29)
[2018-03-07] MEDS: DIPHENHYDRAMINE 25MG CAPSULE PO PRN (20:29)
[2018-03-08] MEDS: HYDRALAZINE HCL 100MG TABLET PO SCH ×3 (06:00→22:00)
[2018-03-08] MEDS: CLONIDINE 0.2MG TABLET PO SCH ×3 (06:00→22:00)
[2018-03-08] MEDS: BLOOD SUGAR DIAGNOSTIC STRIP TEST SCH ×4 (06:54→21:00)
[2018-03-08 07:35] LABS: HEMATOCRIT. 27.7 % (42.0-52.0); MEAN CORPUSCULAR HEMOGLOBIN 26.8 pg (28.0-32.0); MEAN CORPUSCULAR VOLUME 82.3 fL (80.0-94.0); MEAN PLATELET VOLUME 7.9 fl (7.4-10.4); PLATELET 293 x1000/uL (130-400); RED BLOOD CELL COUNT 3.37 mill/uL (4.7-6.1)
[2018-03-08] MEDS: INSULIN LISPRO 100 UNITS/ML SUBCUT SCH ×4 (07:50→21:00)
[2018-03-08 08:00] VITALS: BP 144/75
[2018-03-08] MEDS: SEVELAMER CARBONATE 800 MG TABLET PO SCH ×3 (08:39→17:11)
[2018-03-08] MEDS: CALCIUM ACETATE 667MG CAPSULE PO SCH ×3 (08:41→17:11)
[2018-03-08] MEDS: METOPROLOL TARTRATE 50MG TABLET PO SCH ×2 (08:43→21:55)
[2018-03-08] MEDS: NIFEDIPINE XL 60MG TAB PO SCH ×2 (08:43→16:59)
[2018-03-08] MEDS: DIPHENHYDRAMINE 25MG CAPSULE PO PRN ×2 (08:52→21:31)
[2018-03-08 10:53] LABS: PHOSPHORUS 3.6 mg/dL (2.5-4.9)
[2018-03-08 12:00] VITALS: BP_SYST 132; BP_SYST 149; BP_DIAS 66; BP_DIAS 84
[2018-03-08 14:00] VITALS: BP 138/74
[2018-03-08 14:29] LABS: PLATELET ESTIMATE NORMAL
[2018-03-08] MEDS ORDERED: VANCOMYCIN 1250MG in DEXTROSE 5% WATER 250ML IV NR (15:00)
[2018-03-08] MEDS: QUETIAPINE FUMARATE 25MG TABLET PO SCH (21:31)
[2018-03-08 21:55] VITALS: BP 160/99
[2018-03-09 04:00] VITALS: BP 155/80
[2018-03-09] MEDS: HYDRALAZINE HCL 100MG TABLET PO SCH ×3 (06:10→21:13)
[2018-03-09] MEDS: CLONIDINE 0.2MG TABLET PO SCH ×3 (06:10→21:13)
[2018-03-09] MEDS: BLOOD SUGAR DIAGNOSTIC STRIP TEST SCH ×4 (06:51→20:24)
[2018-03-09 08:00] VITALS: BP 129/72
[2018-03-09] MEDS: SEVELAMER CARBONATE 800 MG TABLET PO SCH ×3 (08:58→17:56)
[2018-03-09] MEDS: METOPROLOL TARTRATE 50MG TABLET PO SCH ×2 (08:59→20:23)
[2018-03-09] MEDS: NIFEDIPINE XL 60MG TAB PO SCH ×2 (08:59→17:56)
[2018-03-09] MEDS: CALCIUM ACETATE 667MG CAPSULE PO SCH ×3 (08:59→17:56)
[2018-03-09] MEDS: INSULIN LISPRO 100 UNITS/ML SUBCUT SCH ×4 (09:05→20:52)
[2018-03-09 12:00] VITALS: BP 136/67
[2018-03-09] MEDS: LACTULOSE 20G/30ML UDC PO PRN (15:47)
[2018-03-09] MEDS: DAPTOMYCIN IV SCH (15:48)
[2018-03-09] MEDS: SODIUM CHLORIDE 0.9% IV SCH (15:48)
[2018-03-09 16:00] VITALS: BP 142/76
[2018-03-09] MEDS: QUETIAPINE FUMARATE 25MG TABLET PO SCH (20:23)
[2018-03-09 23:09] LABS: CHLORIDE 96 mEq/L (98-107)
[2018-03-09 23:15] LABS: PHOSPHORUS 3.2 mg/dL (2.5-4.9)
[2018-03-10] VITALS (7 sets, daily range): BP systolic 93–142; BP diastolic 55–86
[2018-03-10] MEDS: HYDRALAZINE HCL 100MG TABLET PO SCH ×3 (06:35→21:05)
[2018-03-10] MEDS: CLONIDINE 0.2MG TABLET PO SCH ×3 (06:36→21:05)
[2018-03-10] MEDS: BLOOD SUGAR DIAGNOSTIC STRIP TEST SCH ×4 (06:36→21:57)
[2018-03-10] MEDS: SEVELAMER CARBONATE 800 MG TABLET PO SCH ×4 (06:50→18:02)
[2018-03-10] MEDS: CALCIUM ACETATE 667MG CAPSULE PO SCH ×4 (06:50→18:02)
[2018-03-10] MEDS: INSULIN LISPRO 100 UNITS/ML SUBCUT SCH ×4 (07:50→22:24)
[2018-03-10] MEDS: NIFEDIPINE XL 60MG TAB PO SCH ×2 (08:32→17:00)
[2018-03-10] MEDS: METOPROLOL TARTRATE 50MG TABLET PO SCH ×2 (08:32→21:06)
[2018-03-10 10:55] LABS: HEMATOCRIT. 27.9 % (42.0-52.0); MEAN CORPUSCULAR HEMOGLOBIN 26.8 pg (28.0-32.0); MEAN CORPUSCULAR VOLUME 83.1 fL (80.0-94.0); PLATELET 322 x1000/uL (130-400); RED BLOOD CELL COUNT 3.36 mill/uL (4.7-6.1)
[2018-03-10 11:48] LABS: PHOSPHORUS 3.6 mg/dL (2.5-4.9)
[2018-03-10] MEDS: DOCUSATE SODIUM 250MG CAPSULE PO PRN (11:57)
[2018-03-10] MEDS: ACETAMINOPHEN 325MG TABLET PO PRN ×2 (11:57→21:15)
[2018-03-10] MEDS ORDERED: BISACODYL 5MG TABLET PO PRN (15:15)
[2018-03-10] MEDS ORDERED: BISACODYL 10MG SUPP PR PRN (15:15)
[2018-03-10] MEDS: LACTULOSE 20G/30ML UDC PO PRN (18:02)
[2018-03-10 20:31] LABS: PLATELET ESTIMATE NORMAL
[2018-03-10] MEDS: DIPHENHYDRAMINE 25MG CAPSULE PO PRN (21:01)
[2018-03-10] MEDS: QUETIAPINE FUMARATE 25MG TABLET PO SCH (22:08)
[2018-03-11] VITALS: BP 151/85
[2018-03-11 04:00] VITALS: BP 127/75
[2018-03-11] MEDS: HYDRALAZINE HCL 100MG TABLET PO SCH ×3 (06:00→21:31)
[2018-03-11] MEDS: CLONIDINE 0.2MG TABLET PO SCH ×3 (06:00→21:30)
[2018-03-11] MEDS: BLOOD SUGAR DIAGNOSTIC STRIP TEST SCH ×4 (07:20→21:00)
[2018-03-11] MEDS: SEVELAMER CARBONATE 800 MG TABLET PO SCH ×3 (07:50→17:42)
[2018-03-11] MEDS: INSULIN LISPRO 100 UNITS/ML SUBCUT SCH ×4 (07:50→21:00)
[2018-03-11] MEDS: CALCIUM ACETATE 667MG CAPSULE PO SCH ×3 (07:50→17:41)
[2018-03-11] MEDS: METOPROLOL TARTRATE 50MG TABLET PO SCH ×2 (08:18→21:30)
[2018-03-11] MEDS: NIFEDIPINE XL 60MG TAB PO SCH ×2 (08:18→17:00)
[2018-03-11] MEDS ORDERED: SODIUM POLYSTYRENE SULFONATE 15 G/60 ML BOT PO NR ×2 (13:15→16:30)
[2018-03-11] MEDS: DOCUSATE SODIUM 250MG CAPSULE PO SCH (14:15)
[2018-03-11 16:00] VITALS: BP 137/69
[2018-03-11] MEDS: SODIUM CHLORIDE 0.9% IV SCH (16:07)
[2018-03-11] MEDS: DAPTOMYCIN IV SCH (16:07)
[2018-03-11 20:00] VITALS: BP 148/80
[2018-03-11] MEDS ORDERED: LACTULOSE 20G/30ML UDC PO PRN (21:00)
[2018-03-11] MEDS: ONDANSETRON HCL 4MG/2ML INJ IV PRN (21:23)
[2018-03-11] MEDS: QUETIAPINE FUMARATE 25MG TABLET PO SCH (21:30)
[2018-03-12] VITALS: BP 142/78
[2018-03-12 04:00] VITALS: BP 146/80
[2018-03-12] MEDS: HYDRALAZINE HCL 100MG TABLET PO SCH ×3 (05:22→22:35)
[2018-03-12] MEDS: CLONIDINE 0.2MG TABLET PO SCH ×3 (05:23→22:35)
[2018-03-12] MEDS: BLOOD SUGAR DIAGNOSTIC STRIP TEST SCH ×4 (07:20→21:00)
[2018-03-12 08:00] VITALS: BP 137/79
[2018-03-12] MEDS: METOPROLOL TARTRATE 50MG TABLET PO SCH ×2 (09:00→22:36)
[2018-03-12] MEDS: NIFEDIPINE XL 60MG TAB PO SCH ×2 (09:00→18:10)
[2018-03-12] MEDS: INSULIN LISPRO 100 UNITS/ML SUBCUT SCH ×4 (09:42→21:00)
[2018-03-12] MEDS: SEVELAMER CARBONATE 800 MG TABLET PO SCH ×3 (09:43→18:09)
[2018-03-12] MEDS: DOCUSATE SODIUM 250MG CAPSULE PO SCH (09:43)
[2018-03-12] MEDS: CALCIUM ACETATE 667MG CAPSULE PO SCH ×3 (09:52→18:09)
[2018-03-12 12:00] VITALS: BP 94/56
[2018-03-12 13:15] VITALS: BP 90/48
[2018-03-12 16:00] VITALS: BP 116/65
[2018-03-12] MEDS ORDERED: ALTEPLASE 2MG/VIAL ITC NR (17:30)
[2018-03-12] MEDS: QUETIAPINE FUMARATE 25MG TABLET PO SCH (22:36)
[2018-03-13 04:00] VITALS: BP 94/57
[2018-03-13] MEDS: HYDRALAZINE HCL 100MG TABLET PO SCH ×3 (06:47→22:00)
[2018-03-13] MEDS: CLONIDINE 0.2MG TABLET PO SCH ×3 (06:48→22:00)
[2018-03-13] MEDS: BLOOD SUGAR DIAGNOSTIC STRIP TEST SCH ×4 (06:56→20:51)
[2018-03-13] MEDS: INSULIN LISPRO 100 UNITS/ML SUBCUT SCH ×4 (07:24→20:51)
[2018-03-13] MEDS: SEVELAMER CARBONATE 800 MG TABLET PO SCH ×3 (07:50→17:05)
[2018-03-13] MEDS: CALCIUM ACETATE 667MG CAPSULE PO SCH ×3 (07:50→17:04)
[2018-03-13 08:00] VITALS: BP 113/63
[2018-03-13] MEDS: NIFEDIPINE XL 60MG TAB PO SCH ×2 (09:00→17:00)
[2018-03-13] MEDS: METOPROLOL TARTRATE 50MG TABLET PO SCH ×2 (09:00→20:42)
[2018-03-13] MEDS: DOCUSATE SODIUM 250MG CAPSULE PO SCH (09:00)
[2018-03-13 12:00] VITALS: BP 121/60
[2018-03-13] MEDS: SODIUM CHLORIDE 0.9% IV SCH (15:42)
[2018-03-13] MEDS: DAPTOMYCIN IV SCH (15:42)
[2018-03-13 16:00] VITALS: BP 119/65
[2018-03-13] MEDS: QUETIAPINE FUMARATE 25MG TABLET PO SCH (20:30)
[2018-03-13] MEDS: DIPHENHYDRAMINE 25MG CAPSULE PO PRN (20:30)
[2018-03-13 20:56] VITALS: BP 132/64
[2018-03-14] VITALS (21 sets, daily range): BP systolic 133–184; BP diastolic 69–92
[2018-03-14] MEDS: CLONIDINE 0.2MG TABLET PO SCH ×2 (06:00→15:33)
[2018-03-14] MEDS: HYDRALAZINE HCL 100MG TABLET PO SCH ×2 (06:00→15:33)
[2018-03-14] MEDS: BLOOD SUGAR DIAGNOSTIC STRIP TEST SCH ×3 (07:02→17:30)
[2018-03-14] MEDS: CALCIUM ACETATE 667MG CAPSULE PO SCH ×3 (07:50→17:50)
[2018-03-14] MEDS: INSULIN LISPRO 100 UNITS/ML SUBCUT SCH ×3 (07:50→17:50)
[2018-03-14] MEDS: DOCUSATE SODIUM 250MG CAPSULE PO SCH (09:00)
[2018-03-14] MEDS: NIFEDIPINE XL 60MG TAB PO SCH ×2 (09:00→17:00)
[2018-03-14] MEDS: METOPROLOL TARTRATE 50MG TABLET PO SCH (09:00)
[2018-03-14] MEDS ORDERED: LIDOCAINE HCL 1% 20ML VIAL (Pyxis) INJ ONE (09:16)
[2018-03-14] MEDS ORDERED: SODIUM BICARBONATE 4% (2.4MEQ) 5ML VIAL IV ONE (09:16)
[2018-03-14] MEDS: SEVELAMER CARBONATE 800 MG TABLET PO SCH ×3 (09:35→17:50)
[2018-03-14] MEDS ORDERED: FENTANYL CITRATE/PF 50MCG/ML 2ML VIAL ONE (10:36)
[2018-03-14] MEDS ORDERED: FENTANYL CITRATE/PF 50MCG/ML 2ML VIAL IV ONE (11:00)
== END 2018-03-14 18:34 | DRG 951 ==
LOC: ER 14:30 → MICUSO 17:23 → EDBEDREQTM 17:27 → EDBEDREQ 17:27 → EDBEDREQSVC 17:27 → ENRESERV 02-20 07:19 → MICUSO 02-20 08:10 → 6WST 02-21 13:40 → 6EST 03-02 06:15
PROVIDERS: ADMIT Internal Medicine; ATTEND Internal Medicine
PROC: 5A1D70Z Performance of Urinary Filtration, Intermittent, Less than 6 Hours Per Day (ICD-10-PCS; 2018-02-19)
PROC: 5A1D70Z Performance of Urinary Filtration, Intermittent, Less than 6 Hours Per Day (ICD-10-PCS; 2018-02-20)
PROC: 5A1D70Z Performance of Urinary Filtration, Intermittent, Less than 6 Hours Per Day (ICD-10-PCS; 2018-02-21)
PROC: 0JBR0ZZ Excision of Left Foot Subcutaneous Tissue and Fascia, Open Approach (ICD-10-PCS; principal; 2018-02-23)
PROC: 5A1D70Z Performance of Urinary Filtration, Intermittent, Less than 6 Hours Per Day (ICD-10-PCS; 2018-02-23)
PROC: 0JDN0ZZ Extraction of Right Lower Leg Subcutaneous Tissue and Fascia, Open Approach (ICD-10-PCS; 2018-02-23)
PROC: 5A1D70Z Performance of Urinary Filtration, Intermittent, Less than 6 Hours Per Day (ICD-10-PCS; 2018-02-25)
PROC: 5A1D70Z Performance of Urinary Filtration, Intermittent, Less than 6 Hours Per Day (ICD-10-PCS; 2018-02-26)
PROC: 0JH63XZ Insertion of Tunneled Vascular Access Device into Chest Subcutaneous Tissue and Fascia, Percutaneous Approach (ICD-10-PCS; 2018-02-26)
PROC: 02H633Z Insertion of Infusion Device into Right Atrium, Percutaneous Approach (ICD-10-PCS; 2018-02-26)
PROC: B244ZZZ Ultrasonography of Right Heart (ICD-10-PCS; 2018-02-26)
PROC: 5A1D70Z Performance of Urinary Filtration, Intermittent, Less than 6 Hours Per Day (ICD-10-PCS; 2018-02-28)
PROC: 0JPT3XZ Removal of Tunneled Vascular Access Device from Trunk Subcutaneous Tissue and Fascia, Percutaneous Approach (ICD-10-PCS; 2018-03-02)
PROC: 05PY33Z Removal of Infusion Device from Upper Vein, Percutaneous Approach (ICD-10-PCS; 2018-03-02)
PROC: 5A1D70Z Performance of Urinary Filtration, Intermittent, Less than 6 Hours Per Day (ICD-10-PCS; 2018-03-03)
PROC: 5A1D70Z Performance of Urinary Filtration, Intermittent, Less than 6 Hours Per Day (ICD-10-PCS; 2018-03-04)
PROC: 06HY33Z Insertion of Infusion Device into Lower Vein, Percutaneous Approach (ICD-10-PCS; 2018-03-04)
PROC: 5A1D70Z Performance of Urinary Filtration, Intermittent, Less than 6 Hours Per Day (ICD-10-PCS; 2018-03-05)
PROC: 5A1D70Z Performance of Urinary Filtration, Intermittent, Less than 6 Hours Per Day (ICD-10-PCS; 2018-03-07)
PROC: 5A1D70Z Performance of Urinary Filtration, Intermittent, Less than 6 Hours Per Day (ICD-10-PCS; 2018-03-09)
PROC: 5A1D70Z Performance of Urinary Filtration, Intermittent, Less than 6 Hours Per Day (ICD-10-PCS; 2018-03-10)
PROC: 5A1D70Z Performance of Urinary Filtration, Intermittent, Less than 6 Hours Per Day (ICD-10-PCS; 2018-03-11)
PROC: 5A1D70Z Performance of Urinary Filtration, Intermittent, Less than 6 Hours Per Day (ICD-10-PCS; 2018-03-13)
PROC: 0JH63XZ Insertion of Tunneled Vascular Access Device into Chest Subcutaneous Tissue and Fascia, Percutaneous Approach (ICD-10-PCS; 2018-03-14)
PROC: 02HV33Z Insertion of Infusion Device into Superior Vena Cava, Percutaneous Approach (ICD-10-PCS; 2018-03-14)
PROC: B548ZZA Ultrasonography of Superior Vena Cava, Guidance (ICD-10-PCS; 2018-03-14)
PROC: B5181ZA Fluoroscopy of Superior Vena Cava using Low Osmolar Contrast, Guidance (ICD-10-PCS; 2018-03-14)
DX: T82.7XXA Infection and inflammatory reaction due to other cardiac and vascular devices, implants and grafts, initial encounter (principal); J96.01 Acute respiratory failure with hypoxia; A41.02 Sepsis due to Methicillin resistant Staphylococcus aureus; I13.2 Hypertensive heart and chronic kidney disease with heart failure and with stage 5 chronic kidney disease, or end stage renal disease; I96 Gangrene, not elsewhere classified; E11.22 Type 2 diabetes mellitus with diabetic chronic kidney disease; I50.9 Heart failure, unspecified; E11.42 Type 2 diabetes mellitus with diabetic polyneuropathy; E11.621 Type 2 diabetes mellitus with foot ulcer; L97.529 Non-pressure chronic ulcer of other part of left foot with unspecified severity; E11.52 Type 2 diabetes mellitus with diabetic peripheral angiopathy with gangrene; I16.1 Hypertensive emergency; T82.868A Thrombosis due to vascular prosthetic devices, implants and grafts, initial encounter; N18.6 End stage renal disease; D63.8 Anemia in other chronic diseases classified elsewhere; E87.5 Hyperkalemia; J98.4 Other disorders of lung; K59.00 Constipation, unspecified; L84 Corns and callosities; L57.0 Actinic keratosis; Y83.8 Other surgical procedures as the cause of abnormal reaction of the patient, or of later complication, without mention of misadventure at the time of the procedure; N25.81 Secondary hyperparathyroidism of renal origin; W05.0XXA Fall from non-moving wheelchair, initial encounter; Y93.89 Activity, other specified; Z99.2 Dependence on renal dialysis; Y92.89 Other specified places as the place of occurrence of the external cause; Y99.8 Other external cause status; Z82.49 Family history of ischemic heart disease and other diseases of the circulatory system; Z83.3 Family history of diabetes mellitus; Z86.73 Personal history of transient ischemic attack (TIA), and cerebral infarction without residual deficits; Z91.81 History of falling; Z88.0 Allergy status to penicillin; Z89.421 Acquired absence of other right toe(s); Z79.4 Long term (current) use of insulin; Z91.14 Patient's other noncompliance with medication regimen
CPT/HCPCS: 36415; 36558; 36569; 36589; 71045; 71250; 73502; 74176; 76700; 76937; 77001; 80048; 80202; 82962; 83735; 83880; 84100; 84484; 87077; 93005; 93306; 93970; 93971; 96365; 96366; 96368; 96375; 97116; 97163; 97530; 99152; 99153; 99291; C1750; C1752; C1769; C1893; J0878; J1170; J1642; J1644; J1815; J2270; J2405; J2997; J3010; J3370; J3490; J7030; J7040; J7050; J7060; Q0163; G0500